=== PATIENT | male | born 1990 ===

== ENCOUNTER 2016-12-22 11:19 | Emergency (ER) | payer OTHER ==
[2016-12-22 11:24] VITALS: BP 120/64; PULSE 75; RESP 16; TEMP 98.5; O2SAT 100
[2016-12-22] MEDS ORDERED: Bacitracin 500 Units/gm Oint Foilpak UD TOP ONE (11:42)
--- NOTE | 2016-12-22 11:43 | C.PDOC ---
History Of Present Illness Patient complains of rash to both feet for few days, and 2 days ago scratched and picked at right foot and now complains of pain to area. He reports rash is itchy and at times bowen, denies any fever or drainage. Time Seen by Provider: 12/22/16 11:37 Chief Complaint (Nursing): Abnormal Skin Integrity History Per: Patient History/Exam Limitations: no limitations Onset/Duration Of Symptoms: Days Current Symptoms Are (Timing): Still Present Location Of Injury: Right: Foot, Left: Foot Quality Of Symptoms: Painful, Itching. denies: Swollen, Draining Past Medical History Reviewed: Historical Data, Nursing Documentation, Vital Signs Vital Signs: Last Vital Signs Temp 98.5 F 12/22/16 11:21 Pulse 75 12/22/16 11:21 Resp 16 12/22/16 11:21 BP 120/64 12/22/16 11:21 Pulse Ox 100 12/22/16 12:05 - Medical History PMH: No Chronic Diseases Surgical History: No Surg Hx Family History: States: Unknown Family Hx - Social History Hx Alcohol Use: Yes Hx Substance Use: No - Immunization History Hx Tetanus Toxoid Vaccination: No Hx Influenza Vaccination: No Hx Pneumococcal Vaccination: No Review Of Systems Except As Marked, All Systems Reviewed And Found Negative. Skin: Positive for: Rash Physical Exam - Physical Exam Appears: Non-toxic, No Acute Distress Skin: Warm, Dry, Rash (dry flaking and scaly rash to bilateral plantar surface. scab wound to right foot. ) Head: Atraumatic, Normacephalic Eye(s): bilateral: Normal Inspection Neck: Normal ROM Chest: Symmetrical Extremity: Normal ROM, No Tenderness, No Calf Tenderness, No Deformity, No Swelling Pulses: Left Dorsalis Pedis: Normal, Right Dorsalis Pedis: Normal Neurological/Psych: Oriented x3, Normal Speech ED Course And Treatment O2 Sat by Pulse Oximetry: 100 Medical Decision Making Medical Decision Making: impression: tinea pedis 1153 spoke with podiatry resident who recommends prophylactic antibiotic and can follow up in the podiatry clinic on Monday. Bacitracin applied and Ibuprofen given for pain. Patient given verbal instructions for follow up. Disposition Counseled Patient/Family Regarding: Diagnosis, Need For Followup, Rx Given - Disposition Referrals: Podiatry Clinic [Outside] Disposition: HOME/ ROUTINE Disposition Time: 11:58 Condition: STABLE Additional Instructions: Apply foot cream twice daily for 1-3 weeks. Take antibiotic twice a day. Follow up in the podiatry clinic on Monday Prescriptions: Cephalexin [cephalexin] 500 mg PO Q12 #10 cap Terbinafine HCl [Lamisil At] 30 gm TP BID #1 cream..g. NS Instructions: Tinea Pedis (ED) - POA Present On Arrival: None - Clinical Impression Clinical Impression: Tinea pedis
[2016-12-22] MEDS ORDERED: Bacitracin 500 Units/gm Oint Foilpak UD ONE (11:55)
== END 2016-12-22 12:10 | disposition home or self-care (01) ==
LOC: C.ER 11:19
DX: B35.3 Tinea pedis (principal)

== ENCOUNTER 2017-08-04 12:53 | Emergency (ER) | payer OTHER ==
[2017-08-04 13:29] VITALS: BP 129/76; PULSE 50; RESP 16; TEMP 97.9; O2SAT 100
[2017-08-04] MEDS ORDERED: Lidocaine 1%/Epinephrine 1:100000 30 ml vial IJ STA (13:38)
[2017-08-04] MEDS ORDERED: Tdap Vaccine 0.5 ml Vial (10-64 yrs) IM ONE ×2 (13:40→13:59)
[2017-08-04] MEDS ORDERED: Lidocaine Hydrochloride 5 ML INJ ONE (14:00)
--- NOTE | 2017-08-04 14:06 | C.PDOC ---
History Of Present Illness 27 year old male presents to the ED for evaluation of a laceration to the top of his scalp. Patient states that while at work patient cut the top of his scalp with the corner of a wooden box. Patient denies LOC, headache, visual changes, weakness, numbness. Time Seen by Provider: 08/04/17 13:34 Chief Complaint (Nursing): Abnormal Skin Integrity History Per: Patient History/Exam Limitations: no limitations Onset/Duration Of Symptoms: Hrs Current Symptoms Are (Timing): Still Present Location Of Injury: Right: Head, Left: Head Quality Of Symptoms: Painful Recent travel outside of the [place]: No Additional History Per: Patient Past Medical History Reviewed: Historical Data, Nursing Documentation, Vital Signs Vital Signs: Last Vital Signs Temp 97.9 F 08/04/17 13:27 Pulse 50 L 08/04/17 13:27 Resp 16 08/04/17 13:27 BP 129/76 08/04/17 13:27 Pulse Ox 100 08/04/17 14:12 - Medical History PMH: No Chronic Diseases Surgical History: No Surg Hx Family History: States: Unknown Family Hx - Social History Hx Alcohol Use: Yes Hx Substance Use: No - Immunization History Hx Tetanus Toxoid Vaccination: No Hx Influenza Vaccination: No Hx Pneumococcal Vaccination: No Review Of Systems Except As Marked, All Systems Reviewed And Found Negative. Eyes: Negative for: Vision Change Skin: Positive for: Other (Laceration ) Physical Exam - Physical Exam Appears: Non-toxic, No Acute Distress Skin: Normal Color, Warm, Dry Head: Normacephalic, Laceration (2 cm to the top of his scalp) Eye(s): bilateral: Normal Inspection, PERRL, EOMI Nose: No Discharge Oral Mucosa: Moist Neck: Normal ROM, No Midline Cervical Tenderness, Supple Chest: Symmetrical Cardiovascular: Rhythm Regular, No Murmur Extremity: Normal ROM Neurological/Psych: Oriented x3, Normal Speech, Normal Cognition, Normal Motor, Normal Sensation Gait: Steady ED Course And Treatment O2 Sat by Pulse Oximetry: 100 (ON RA) Pulse Ox Interpretation: Normal Laceration - Laceration Repair top of scalp Wound Length (In cm): 2 Description Of Wound: Linear Anesthesia: Lidocaine 1% Wound Examination: Irrigated With Saline, No FB With Wound Exploration Wound Closure: Johnathon Wound Complexity: Simple Medical Decision Making Medical Decision Making: Plan: * tetanus UTD * Lidocaine 3 johnathon placed 1 week f/u. Disposition - Disposition Referrals: [facility] [Outside] [facility] [Outside] Disposition: HOME/ ROUTINE Disposition Time: 02:00 Condition: STABLE Additional Instructions: return in 7 days or follow up with your doctor for removal. return immediately with any worsening symptoms or concerns. Instructions: Laceration Repair With Johnathon (DC) Forms: [email or web address] (Namibian) - Clinical Impression Clinical Impression: Laceration - Scribe Statement The provider has reviewed the documentation as recorded by the Scribe Michael Barnett All medical record entries made by the Scribe were at my direction and personally dictated by me. I have reviewed the chart and agree that the record accurately reflects my personal performance of the history, physical exam, medical decision making, and the department course for this patient. I have also personally directed, reviewed, and agree with the discharge instructions and disposition.
== END 2017-08-04 14:17 | disposition home or self-care (01) ==
LOC: C.ER 12:53
DX: S01.01XA Laceration without foreign body of scalp, initial encounter (principal); W45.8XXA Other foreign body or object entering through skin, initial encounter; Y99.0 Civilian activity done for income or pay; Z23 Encounter for immunization

== ENCOUNTER 2017-08-15 08:33 | Emergency (ER) | payer OTHER ==
--- NOTE | 2017-08-15 09:29 | RAD ---
PROCEDURE: Right middle finger radiographs. HISTORY: infection COMPARISON: None. TECHNIQUE: AP radiograph of the right hand, as well as spot oblique and lateral images of right middle finger were obtained. FINDINGS: RIGHT MIDDLE FINGER: Right middle finger normal, without fracture of focal lesion. Remainder of the right hand (as seen on the AP view) grossly unremarkable. JOINTS: Normal. SOFT TISSUES: There is mild soft tissue swelling noted. There is no radiopaque foreign body. OTHER FINDINGS: None. IMPRESSION: No acute fracture. No evidence of osteomyelitis.
[2017-08-15] MEDS ORDERED: ceFAZolin 1,000 MG in Sodium Chloride 100 ML IVPB STA (10:07)
[2017-08-15 10:26] VITALS: BP 107/61; PULSE 51; RESP 20; TEMP 97.7; O2SAT 96
--- NOTE | 2017-08-15 11:12 | C.PDOC ---
History Of Present Illness 27yo male, presents to ED for evaluation of pain and swelling to his right 3rd digit since 2 days. Patient states 2 weeks ago, while buying lumber he got a splinter to his right middle finger; patient states he took the splinter out and was doing ok however, he noticed since the past 2 days he has had pain and swelling to that finger. He rates the pain 8/10 and reports using bacitracin ointment with no relief. Patient states the pain worsens with movement and palpation of finger; pain is non-radiating. He denies any fever, chills, weakness or numbness to the finger. No other medical complaints. PMD: None Time Seen by Provider: 08/15/17 09:07 Chief Complaint (Nursing): Finger,Hand,&Wrist History Per: Patient History/Exam Limitations: no limitations Onset/Duration Of Symptoms: Days (2) Current Symptoms Are (Timing): Still Present Quality: Dull, "Pain" Pain Scale Rating Of: 8 Exacerbating Factor(s): Strenuous Use Of Affected Area Past Medical History Reviewed: Historical Data, Nursing Documentation, Vital Signs Vital Signs: Last Vital Signs Temp 97.7 F 08/15/17 10:26 Pulse 51 L 08/15/17 10:26 Resp 20 08/15/17 10:26 BP 107/61 08/15/17 10:26 Pulse Ox 96 08/15/17 11:57 - Medical History PMH: No Chronic Diseases Surgical History: No Surg Hx Family History: States: No Known Family Hx, Unknown Family Hx - Social History Hx Alcohol Use: Yes Hx Substance Use: No - Immunization History Hx Tetanus Toxoid Vaccination: No Hx Influenza Vaccination: No Hx Pneumococcal Vaccination: No Review Of Systems Except As Marked, All Systems Reviewed And Found Negative. Constitutional: Negative for: Fever, Chills Musculoskeletal: Positive for: Other (right 3rd digit pain and swelling) Neurological: Negative for: Weakness, Numbness Physical Exam - Physical Exam Appears: Non-toxic, No Acute Distress Skin: Normal Color, Warm, Dry Head: Atraumatic, Normacephalic Eye(s): bilateral: Normal Inspection, PERRL Neck: Supple Chest: Symmetrical Cardiovascular: Rhythm Regular Respiratory: Normal Breath Sounds Extremity: No Normal ROM (decreased ROM of right 3rd digit due to pain), Tenderness (right 3rd digit tender to palpation), Swelling (swelling noted to right 3rd digit), Other (erythema to tip of right 3rd digit) Neurological/Psych: Oriented x3 ED Course And Treatment O2 Sat by Pulse Oximetry: 96 (RA) Pulse Ox Interpretation: Normal Medical Decision Making Medical Decision Making: Impression: Right 3rd digit pain and swelling Plan: -- XR Right 3rd digit -- Motrin 600mg PO -- Tylenol 975mg PO -- Ancef 1g IV Time: 28 XR RIght 3rd digit FINDINGS: RIGHT MIDDLE FINGER: Right middle finger normal, without fracture of focal lesion. Remainder of the right hand (as seen on the AP view) grossly unremarkable. JOINTS: Normal. SOFT TISSUES: There is mild soft tissue swelling noted. There is no radiopaque foreign body. OTHER FINDINGS: None. IMPRESSION: No acute fracture. No evidence of osteomyelitis. Time: 1109 Patient reports improvement in pain and is stable for discharge home. Patient given prescription for antibiotics and told to follow up in clinic for a hand specialist referral. Disposition Counseled Patient/Family Regarding: Studies Performed, Diagnosis, Need For Followup, Rx Given - Disposition Referrals: Shweta Hampton MD [Staff Provider] - [facility] [Outside] Disposition: HOME/ ROUTINE Disposition Time: 11:09 Condition: STABLE Prescriptions: Ibuprofen [Motrin] 600 mg PO TID #15 tab Penicillin VK [Pen-Vee K] 2 tab PO BID #28 tab traMADol/Acetaminophen [Ultracet 37.5/325 mg] 1 tab PO TID PRN #15 tab PRN Reason: pain Forms: [employer] (Yi) - POA Present On Arrival: None - Clinical Impression Clinical Impression: Splinter in skin, Cellulitis of finger of right hand - Scribe Statement The provider has reviewed the documentation as recorded by the Scribe (Connie Heller) Provider Attestation: All medical record entries made by the Scribe were at my direction and personally dictated by me. I have reviewed the chart and agree that the record accurately reflects my personal performance of the history, physical exam, medical decision making, and the department course for this patient. I have also personally directed, reviewed, and agree with the discharge instructions and disposition.
== END 2017-08-15 11:42 | disposition home or self-care (01) ==
LOC: C.ER 08:33
DX: S60.452A Superficial foreign body of right middle finger, initial encounter (principal); L03.011 Cellulitis of right finger; W45.8XXA Other foreign body or object entering through skin, initial encounter
CPT/HCPCS: 73140; 96365; 99284; J0690; J7050

== ENCOUNTER 2017-08-17 19:25 | Emergency (ER) | payer SELFPAY ==
[2017-08-17 19:35] VITALS: BP 114/64; PULSE 60; RESP 20; TEMP 98.6; O2SAT 98
--- NOTE | 2017-08-17 22:12 | CT ---
EXAM: CT Right Upper Extremity Without Intravenous Contrast, Hand EXAM DATE/TIME: 08/17/2017 8:41 PM CLINICAL HISTORY: 27 years old, male; Signs and symptoms; Swelling; Fingers; Right; Additional info: Mod pain, swelling, puncture wound volar, r 3rd fing TECHNIQUE: Axial computed tomography images of the right hand without intravenous contrast. All CT scans at this facility use one or more dose reduction techniques, viz.: automated exposure control; ma/kV adjustment per patient size (including targeted exams where dose is matched to indication; i.e. head); or iterative reconstruction technique. Coronal and sagittal reformatted images were created and reviewed. COMPARISON: No relevant prior studies available. FINDINGS: BONES/JOINTS: No acute fractures visualized. Bony alignment is within normal limits. No evidence of lytic, destructive bony changes or aggressive periosteal reaction to suggest osteomyelitis. SOFT TISSUES: Diffuse soft tissue swelling and subcutaneous fat infiltration involving the middle finger soft tissues distally, at the level of the middle and distal phalanges. No evidence of a focal, measurable soft tissue fluid collection/abscess. No definite radioopaque and foreign bodies identified. No evidence of soft tissue hematoma. IMPRESSION: - Soft tissue swelling involving the middle finger distally. - No evidence of focal abscess, radiopaque foreign body, or soft tissue gas. - No acute bony abnormality identified. - See above for remaining findings.
--- NOTE | 2017-08-17 22:40 | C.PDOC ---
History Of Present Illness The patient is a 27 year old male who was evaluated in this ED on 08/15 for complaints of right finger pain and swelling s/p puncture wound injury which he sustained two weeks prior. Patient underwent XR which showed no evidence of foreign body, was prescribed antibiotics and advised to follow up with hand doctor. Patient states the pain has worsened today and presents for re- evaluation. Patient denies fever, chills, or drainage from the area. Time Seen by Provider: 08/17/17 19:56 Chief Complaint (Nursing): Upper Extremity Problem/Injury History Per: Patient History/Exam Limitations: no limitations Onset/Duration Of Symptoms: Days Current Symptoms Are (Timing): Worse Quality: "Pain" Additional History Per: Patient Past Medical History Reviewed: Historical Data, Nursing Documentation, Vital Signs Vital Signs: Last Vital Signs Temp 98.6 F 08/17/17 19:33 Pulse 60 08/17/17 19:33 Resp 20 08/17/17 19:33 BP 114/64 08/17/17 19:33 Pulse Ox 98 08/18/17 02:26 - Medical History PMH: No Chronic Diseases Surgical History: No Surg Hx Family History: States: Unknown Family Hx - Social History Hx Alcohol Use: Yes Hx Substance Use: No - Immunization History Hx Tetanus Toxoid Vaccination: Yes Hx Influenza Vaccination: No Hx Pneumococcal Vaccination: No Review Of Systems Constitutional: Negative for: Fever, Chills Musculoskeletal: Positive for: Other (right finger pain and swelling. no drainage ) Physical Exam - Physical Exam Appears: Non-toxic, No Acute Distress Skin: Normal Color, Warm, Dry, Other (small open wound to distal aspect of right 3rd DIP. no apparent fluctuance or purulent drainage noted. no erythema ) Extremity: Tenderness (right 3rd finger ), Capillary Refill (less than 2 seconds ), Swelling (right 3rd finger ), Other (ROM of finger intact, with pain ) Neurological/Psych: Oriented x3, Normal Speech, Normal Cognition, Normal Motor, Normal Sensation ED Course And Treatment O2 Sat by Pulse Oximetry: 98 (on RA) Pulse Ox Interpretation: Normal - CT Scan/US CT right upper extremity Other Rad Studies (CT/US): Read By Radiologist, Radiology Report Reviewed CT/US Interpretation: EXAM: CT Right Upper Extremity Without Intravenous Contrast, Hand. EXAM DATE/TIME: 08/17/2017 8:41 PM. CLINICAL HISTORY: 27 years old, male; Signs and symptoms; Swelling; Fingers; Right; Additional info: Mod pain,. swelling, puncture wound volar, r 3rd fing. TECHNIQUE: Axial computed tomography images of the right hand without intravenous contrast. All CT scans at. this facility use one or more dose reduction techniques, viz.: automated exposure control; ma/kV. adjustment per patient size (including targeted exams where dose is matched to indication; i.e. head);. or iterative reconstruction technique. Coronal and sagittal reformatted images were created and reviewed. COMPARISON: No relevant prior studies available. FINDINGS: BONES/JOINTS: No acute fractures visualized. Bony alignment is within normal limits. No evidence. of lytic, destructive bony changes or aggressive periosteal reaction to suggest osteomyelitis. SOFT TISSUES: Diffuse soft tissue swelling and subcutaneous fat infiltration involving the middle. finger soft tissues distally, at the level of the middle and distal phalanges. No evidence of a focal,. measurable soft tissue fluid collection/abscess. No definite radioopaque and foreign bodies. identified. No evidence of soft tissue hematoma. IMPRESSION: - Soft tissue swelling involving the middle finger distally. - No evidence of focal abscess, radiopaque foreign body, or soft tissue gas. - No acute bony abnormality identified. - See above for remaining findings. Progress Note: Based on patient's complaint of worsening pain since his previous visits, a CT of right upper extremity ordered in order to rule out abscess or tenosynovitis. Patient is refusing pain medication at this time. On re-exam, patient is resting comfortably, showing no signs of distress and is stable for discharge. Patient is advised to continue antibiotics prescribed from his last visit and to follow up with hand surgeon on 09/05 as scheduled. Explained to patient that he must return if concerning symptoms arise, which include but are not limited to: fever, purulent discharge, numbness/weakness, or discoloration to the area. Patient verbalizes understanding and is stable for discharge. Disposition Counseled Patient/Family Regarding: Diagnosis, Need For Followup, Rx Given - Disposition Referrals: Shweta Hampton MD [Staff Provider] - Disposition: HOME/ ROUTINE Disposition Time: 22:38 Condition: STABLE Additional Instructions: Keep splint for support Keep arm elvated May apply warm compress/ and antibacterial oint Keep hand clean/ wound care as instructed Keep appointment with Hand surgeon Continue antibiotics as prescribed Return to ER if worse Instructions: Cellulitis (Skin Infection), Adult (DC) Forms: [employer] (Macedonian) - Clinical Impression Clinical Impression: Cellulitis of finger of right hand, Finger pain, right - PA / [employer] / Resident Statement MD/DO has reviewed & agrees with the documentation as recorded. - Scribe Statement The provider has reviewed the documentation as recorded by the Scribe (Catherine Miller) All medical record entries made by the Scribe were at my direction and personally dictated by me. I have reviewed the chart and agree that the record accurately reflects my personal performance of the history, physical exam, medical decision making, and the department course for this patient. I have also personally directed, reviewed, and agree with the discharge instructions and disposition.
== END 2017-08-17 22:51 | disposition home or self-care (01) ==
LOC: C.ER 19:25
DX: L03.011 Cellulitis of right finger (principal); M79.644 Pain in right finger(s)

== ENCOUNTER 2018-04-30 12:48 | Emergency (ER) | payer OTHER ==
[2018-04-30 13:22] VITALS: BP 122/72; PULSE 55; RESP 20; TEMP 98; O2SAT 99
[2018-04-30] MEDS ORDERED: Tmp-Smz 800 mg-160 mg DS Tab PO STA (13:26)
--- NOTE | 2018-04-30 13:28 | C.PDOC ---
History Of Present Illness 27 year old male presents to the ED for evaluation of a small lesion to right medial elbow area. Patient reports the area started as a small pustule for a few days, and then erupted and started expressing serosanguinous fluid after he had been picking the area for a few days. Patient denies fever, chills, recent trauma. Time Seen by Provider: 04/30/18 13:22 Chief Complaint (Nursing): Abnormal Skin Integrity History Per: Patient History/Exam Limitations: no limitations Onset/Duration Of Symptoms: Days Current Symptoms Are (Timing): Still Present Quality Of Symptoms: Draining Additional History Per: Patient Past Medical History Vital Signs: Last Vital Signs Temp 98 F 04/30/18 13:07 Pulse 55 L 04/30/18 13:07 Resp 20 04/30/18 13:07 BP 122/72 04/30/18 13:07 Pulse Ox 99 04/30/18 13:07 Family History: States: Unknown Family Hx - Social History Hx Alcohol Use: Yes Hx Substance Use: No - Immunization History Hx Tetanus Toxoid Vaccination: Yes Hx Influenza Vaccination: No Hx Pneumococcal Vaccination: No Review Of Systems Constitutional: Negative for: Fever, Chills Skin: Positive for: Lesions (one, right medial elbow area ) Physical Exam - Physical Exam Appears: Non-toxic, No Acute Distress Skin: Normal Color, Warm, Dry, Other (small, 1x1cm area of questionable fluctuance with pus-like bloody discahrge. no surrounding erythema ) Head: Atraumatic, Normacephalic Eye(s): bilateral: Normal Inspection Extremity: Normal ROM, No Tenderness, Capillary Refill (less than 2 seconds ), No Swelling Neurological/Psych: Oriented x3, Normal Speech, Normal Cognition ED Course And Treatment O2 Sat by Pulse Oximetry: 99 (on RA) Pulse Ox Interpretation: Normal Progress Note: Motrin PO and Bactrim PO given. Medical Decision Making Medical Decision Makinx1 sm small abscess/wound, no opened to surface and draining defer I&D for risk/benefit of further structural damage and minimal fluctuance. Bactrim for consideration of ? MRSA Disposition Doctor Will See Patient In The: Office Counseled Patient/Family Regarding: Studies Performed, Diagnosis - Disposition Referrals: [facility] [Outside] [facility] [Outside] [facility] [Outside] Disposition: HOME/ ROUTINE Disposition Time: 13:28 Condition: GOOD Additional Instructions: compressas tibias 1/2 hora por hora NO LO OPRIMAS, SE HACE PEOR Bactrim DS (antibiotico) 1 tableta 2 veces al beatrice por 5 mulligan en total Ibuprofeno/advil 400-600 mg cada 6 horas amy necessario para dolor. Sigue en [facility] o' regressa amy necessario Prescriptions: Sulfamethoxazole/Trimethoprim [Bactrim DS 800 mg-160 mg] 1 tab PO BID #9 tab Instructions: Skin Abscess Forms: [employer] (Sao Tomean) Print Language: SAMI - Clinical Impression Clinical Impression: Skin lesion - Scribe Statement The provider has reviewed the documentation as recorded by the Scribe (Catherine Miller) Provider Attestation: All medical record entries made by the Scribe were at my direction and personally dictated by me. I have reviewed the chart and agree that the record accurately reflects my personal performance of the history, physical exam, medical decision making, and the department course for this patient. I have also personally directed, reviewed, and agree with the discharge instructions and disposition.
[2018-04-30] MEDS ORDERED: Tmp-Smz 800 mg-160 mg DS Tab ONE (13:43)
== END 2018-04-30 13:44 | disposition home or self-care (01) ==
LOC: C.ER 12:48
DX: L98.8 Other specified disorders of the skin and subcutaneous tissue (principal)